=== PATIENT | male | born 1950 | race Caucasian/White ===

== ENCOUNTER → 2017-08-03 | Outpatient (CLI) | payer OTHER, BC | LOC: BMCIMAGING 12:49 | PROVIDERS: ATTEND Internal Medicine | DX: N17.9 Acute kidney failure, unspecified (principal); N13.30 Unspecified hydronephrosis; R93.49 Abnormal radiologic findings on diagnostic imaging of other urinary organs; N40.0 Benign prostatic hyperplasia without lower urinary tract symptoms ==

== ENCOUNTER → 2017-08-12 | Day surgery (SDC) | payer BC ==
--- NOTE | 2017-08-12 22:04 | GPN ---
[f rep st] PROCEDURE NOTE DATE OF PROCEDURE: 08/12/2017 PREOPERATIVE DIAGNOSES: 1. Elevated prostate-specific antigen and abnormal digital rectal exam. 2. Bladder outlet obstruction. POSTOPERATIVE DIAGNOSES: 1. Elevated prostate-specific antigen and abnormal digital rectal exam. 2. Bladder outlet obstruction. PROCEDURE PERFORMED: Transrectal guided biopsy of the prostate. ANESTHESIA: 1% local lidocaine. SPECIMENS: 12 prostate core biopsies. COMPLICATIONS: None. The patient tolerated the procedure well. FINDINGS: DIffusely firm nodular prostate. The prostate volume was 88 g, measuring 1.5 x 4.8 x 6.7 cm. INDICATION FOR PROCEDURE: The patient was referred by Dr. Coates to my office for acute urinary retention. He was catheterized a week ago with a L of urine retention. A digital rectal exam revealed a very dense hard nodular prostate. His PSA is 11. Recommended next step in management, besides a Howard catheter placement was a prostate biopsy. I went over in detail the benefits and the risks of this procedure. Risks include bleeding, infection, pain, blood in the urine, ejaculate and stool for up to 2 weeks, urinary tract infection, as well as post biopsy urinary tract infection and sepsis. He did receive 120 mg of gentamicin as well as an oral dose of 750 mg of Levaquin that was taken orally 2 hours before the procedure for prevention of postbiopsy infection. He understood all these risks and agreed to proceed. DESCRIPTION OF PROCEDURE: A time-out was performed. Verification made that the antibiotics were given and consent was received. He was placed in the left lateral decubitus position. A digital rectal exam was performed and as noted above in the findings. The prostate probe was then gently inserted transrectally and 10 mL of lidocaine on each side of the prostate was instilled for the prostate block into the osmani prostatic fascia. Measurements were then taken as noted above. Then 12 core biopsies were taken using an end-fire probe , 6 from each side of the prostate and each side of the prostate had 2 biopsies at the base, mid and apex of the prostate. All the specimens were of good quality and length and were examined for this after each biopsy. The patient tolerated this procedure well. The probe was removed and another rectal exam was performed to check for hemostasis and hemostasis was excellent. He sat up, felt well and was instructed to void prior to leaving the [facility]. He is to call with any questions or concerns, especially any fevers or chills. /[id number]/MODL MTDD
== END | disposition home or self-care (01) ==
LOC: BMCIMAGING 07:25
PROVIDERS: ATTEND Urology
PROC: 0VB03ZX Excision of Prostate, Percutaneous Approach, Diagnostic (ICD-10-PCS; principal; 2017-08-12)
PROC: BV49ZZZ Ultrasonography of Prostate and Seminal Vesicles (ICD-10-PCS; 2017-08-12)
DX: N40.1 Benign prostatic hyperplasia with lower urinary tract symptoms (principal); R33.8 Other retention of urine

== ENCOUNTER → 2017-08-20 | Outpatient (CLI) | payer BC, OTHER ==
[~2017-08-20] MED LIST: IOPAMIDOL (ISOVUE-300) 100 ML BTL ONE
== END ==
LOC: FIMAGING 07:46
PROVIDERS: ATTEND Urology
PROC: CP1Z1ZZ Planar Nuclear Medicine Imaging of Musculoskeletal System, All using Technetium 99m (Tc-99m) (ICD-10-PCS; principal; 2017-08-20)
DX: M89.8X8 Other specified disorders of bone, other site (principal); N32.9 Bladder disorder, unspecified; N13.30 Unspecified hydronephrosis; R16.1 Splenomegaly, not elsewhere classified; C61 Malignant neoplasm of prostate
CPT/HCPCS: 74178; 78306; A9503; Q9967

== ENCOUNTER → 2018-03-17 | Outpatient (CLI) | payer BC | LOC: FIMAGING 09:50 | PROVIDERS: ATTEND Internal Medicine Gastroenterology | DX: K86.2 Cyst of pancreas (principal); M89.9 Disorder of bone, unspecified; N13.30 Unspecified hydronephrosis; Z85.46 Personal history of malignant neoplasm of prostate | CPT/HCPCS: 82565-PO; Q9967 ==

== ENCOUNTER → 2018-12-17 | Outpatient (CLI) | payer BC | LOC: FIMAGING 13:02 | PROVIDERS: ATTEND Internal Medicine Gastroenterology | DX: K86.9 Disease of pancreas, unspecified (principal); C61 Malignant neoplasm of prostate; C79.51 Secondary malignant neoplasm of bone | CPT/HCPCS: Q9967 ==